=== PATIENT | female | born 1980 | race Caucasian/White ===

== ENCOUNTER 2024-09-11 05:54 | Emergency (ER) | payer MEDICAID, SELFPAY ==
[2024-09-11 05:58] VITALS: BP 133/83; PULSE 60; RESP 17; TEMP 36.6; O2SAT 98
[2024-09-11 06:01] VITALS: PULSE 78; RESP 16; O2SAT 98; BMI 39.5
--- NOTE | 2024-09-11 06:05 | EKG_ITS ---
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
[2024-09-11 06:10] VITALS: BP 163/68; PULSE 60; RESP 16; TEMP 37; O2SAT 98
--- NOTE | 2024-09-11 06:34 | XR_ITS ---
Examination: CT brain head without contrast. 2-D sagittal coronal reconstructions Date and time of exam:September 11, 2024, 0717 hours Comparison August 13, 2023 INDICATIONS: New onset seizure today CTDI: vol (mGy):46.8 DLP: (mGycm):919 Technique: Multiple CT axial sections of the brain have been obtained, 5 mm slice thickness. Contrast has not been administered. 2-D sagittal, coronal reconstructions have been obtained Low dose protocols were performed. One or more of the following dose reduction techniques were used; automated exposure control, adjustment of the mA and/or KV according to patient size, use of iterative reconstruction technique. Findings: Patient motion degrades scan image quality Ventricles are not enlarged No hemorrhage mass effect or midline shift Cranial vault grossly intact IMPRESSION: Patient motion degrades scan image quality. No gross hemorrhage or mass effect or midline shift Consider elective brain MRI follow-up, pre and postcontrast, seizure protocol
--- NOTE | 2024-09-11 06:40 | PD.EDSEIZ ---
ED Seizures RME/HPI General Chief Complaint: Seizure Stated Complaint: SEIZURE Time Seen by Provider: 09/11/24 06:31 Arrival date/time: 09/11/24 05:54 RME / HPI RME / HPI Narrative: 44-year-old female otherwise healthy who presents with approximately 1 year of increasing fainting spells . She states that she now is caring for her terminally ill father which is increasing stress including poor sleep. She states she feels these triggers of panic , then her arms and legs lock up , and she passes out. She does not endorse seizure-like activity. No oral trauma. No bowel or bladder loss. She denies recent head trauma, no recent illness. She denies fevers chills or sweats. She denies neck pain. She currently has a headache and is requesting an aspirin . EMS states that she had 2 panic attacks lasting 5 minutes. 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: No Related Data Previous Rx's ?Medication ?Instructions ?Recorded ondansetron 4 mg disintegrating 4 mg PO Q6H PRN nausea and 08/13/23 tablet vomiting #10 tabs metoclopramide HCl 10 mg tablet 10 mg PO Q6H PRN nausea and 08/14/23 (Reglan) vomiting #20 tabs pantoprazole 40 mg tablet,delayed 40 mg PO QDAY #30 tabs 08/14/23 release (Protonix) Allergies Allergy/AdvReac Type Severity Reaction Status Date / Time morphine Allergy Severe VOMITING Verified 09/11/24 06:00 AND HEADACHE Penicillins Allergy Severe RASH AND Verified 09/11/24 06:00 TACHYCARDIA Review of Systems Review of Systems Systems Reviewed: All systems reviewed, normal except as documented Past Medical History Past Medical History CARDIAC: Negative Cardiac Disorders GASTROINTESTINAL: Positive Gastrointestinal Disorders GENITOURINARY: Negative Renal Disease PSYCHO/SOCIAL: Positive Anxiety Surgical History SURGICAL: Positive Hysterectomy and Section Social History SMOKING STATUS: Current some day smoker SUBSTANCE USE: unknown ED Exam Narrative Physical exam: GENERAL APPEARANCE: AxOx4, generally well-appearing, no acute distress, gets very emotional, teary-eyed when talking about her father HEENT: NC, AT. MMM. EOMI, clear conjunctiva, oropharynx clear. NECK: Supple without lymphadenopathy. No stiffness or restricted ROM. HEART: Normal rate and regular rhythm, normal S1/S1, no m/r/g LUNGS: CTAB, moving air well. No crackles or wheezes are heard. ABDOMEN: Soft, nontender, nondistended with good bowel sounds heard. BACK: No midline C/T/L spine pain or deformity, No CVAT, no obvious deformity. EXTREMITIES: Without cyanosis, clubbing or edema. MUSCULOSKELETAL: FROM of all major joints, no chest tenderness NEUROLOGICAL: Grossly nonfocal. Alert and oriented, moving all 4 extremities. CN not formally tested but appear grossly intact. Observed to ambulate with normal gait. Skin: Warm and dry without any rash. Course Quality Measures none Orders Category Date Time Status Bedside Blood Glucose NOW Care 09/11/24 06:09 Completed EKG (ED ONLY) *Do not use* NOW Care 09/11/24 06:05 Completed IV [Insert IV] STAT Care 09/11/24 06:[address] head/brain wo con Stat Exams 09/11/24 06:34 Completed EKG (ED Only) Stat Exams 09/11/24 06:05 Ordered Alcohol, Urine Stat Lab 09/11/24 06:42 Completed CBC Stat Lab 09/11/24 06:42 Completed CMP [Comprehensive Metabolic Panel] Stat Lab 09/11/24 06:42 Completed Drug Screen,Urine Stat Lab 09/11/24 06:42 Completed Aspirin Med 09/11/24 07:03 Discontinued 325 mg PO X1 ONE Vital Signs Vital signs: Vital Signs Temperature 97.9 F 09/11/24 05:58 Pulse Rate 60 09/11/24 05:58 Respiratory Rate 17 09/11/24 05:58 Blood Pressure 133/83 H 09/11/24 05:58 Pulse Oximetry (%) 98 09/11/24 05:58 Oxygen Delivery Method Room Air 09/11/24 05:58 Pulse ox is 98% on room air which is adequate. Seizure MDM Narrative MDM Narrative:: Colette Junior am scribing for and in the presence of Dr. Hugo. Patient data External records reviewed:: [facility] previous records (I reviewed ED Visit on 08/14/2023 ) Clinical information provided by:: patient Social determinants that could affect healthcare access:: mental health Patient has the following chronic illnesses:: Anxiety How is presenting disease/condition affected by chronic disease/condition?: exacerbated by Evaluation data The following diagnostics were reviewed and interpreted by me:: lab results, radiology exam(s) (Head CT interpreted by me, negative for acute intracranial findings, no bony abnormalities. ) and EKG tracing(s) (EKG 09/11/2024 @ 06:13 AM. Atrial fibrillation with slow ventricular response, rate 59, no STEMI. ) Lab and/or radiology exams considered but not ordered:: None Interpretation Summary: Ordering Physician: Jah Hugo MD Date of Service: 09/11/24 Procedure(s): CT head/brain wo con Accession Number(s): [id number] cc: Jah Hugo MD; Shine Peraza MD; NO PRIMARY/FAMILY,PHYSICIAN~ Examination: CT brain head without contrast. 2-D sagittal coronal reconstructions Date and time of exam:September 11, 2024, 0717 hours Comparison August 13, 2023 INDICATIONS: New onset seizure today CTDI: vol (mGy):46.8 DLP: (mGycm):919 Technique: Multiple CT axial sections of the brain have been obtained, 5 mm slice thickness. Contrast has not been administered. 2-D sagittal, coronal reconstructions have been obtained Low dose protocols were performed. One or more of the following dose reduction techniques were used; automated exposure control, adjustment of the mA and/or KV according to patient size, use of iterative reconstruction technique. Findings: Patient motion degrades scan image quality Ventricles are not enlarged No hemorrhage mass effect or midline shift Cranial vault grossly intact IMPRESSION: Patient motion degrades scan image quality. No gross hemorrhage or mass effect or midline shift Consider elective brain MRI follow-up, pre and postcontrast, seizure protocol Dictated By: Shine Peraza MD Signed By: <Electronically signed by Shine Peraza MD in OV> 09/11/24 0747 Medications / Prescriptions Medications or Prescriptions considered but not ordered:: None Medication administrations:: Medication Administration History Discontinued Medications Aspirin (Aspirin 325 Mg Tablet) 325 mg PO X1 ONE Stop: 09/11/24 07:04 Last Admin: 09/11/24 07:33 Dose: 325 mg Documented By: TM See above Consultations Consultation(s) initiated? (list below): No Diagnosis Seizure Differential Diagnosis: focal seizure, generalized seizure and other (pseudo seizure, anxiety ) Most likely diagnosis given after review of the tests above:: Panic attack Syncope Admission Indicated Admission indicated?: not indicated Admission Request Was there a request for admission?: No Disposition Plan Disposition Plan: Discharge Discharge Attestation Discharge Attestation: The patient and all family members were given an opportunity to ask questions and understood the discharge instructions. Discharge instructions specifically effects, indications for sooner follow up or return to the emergency department, and the expected course of current diagnosis. Patient condition: Stable Discharge Plan Plan Patient Disposition: HOME (Self Care) Prescriptions/Referrals Prescriptions/Med Rec: No Action metoclopramide HCl [Reglan] 10 mg tablet 10 mg PO Q6H PRN (Reason: nausea and vomiting) Qty: 20 0RF pantoprazole [Protonix] 40 mg tablet,delayed release (DR/EC) 40 mg PO QDAY Qty: 30 0RF ondansetron 4 mg tablet,disintegrating 4 mg PO Q6H PRN (Reason: nausea and vomiting) Qty: 10 0RF Referrals: No Primary/Family,Physician [Primary Care Provider] - In 1 week Problem List Clinical Impression: Panic attack, Syncope Patient/Caregiver Discharge Instructions Education Materials: ED Anxiety Reaction, ED Fainting, Uncertain Cause Additional Instructions: Follow-up with your primary care doctor in 2 to 3 days for recheck. You consider possible referral with [facility] for therapist as well. Feel free return to the emergency department sooner symptoms worsen or if you notice any new, concerning issues Print Language: Turkish Stand Alone Forms: Ruth Award Info., Patient Portal Info Letter
[2024-09-11 06:59] LABS: Basophils % (Auto) 0 % (0-2.5); Eosinophils # (Auto) 0.1 Thou/mm3 (0.0-0.5); Eosinophils % (Auto) 1 % (0-10); Hematocrit 40.7 % (36.0-46.0); Hemoglobin 14.4 g/dL (12.0-16.0); Immature Granulocytes % (Auto) 0 % (0-0); Immature Granulocytes Auto 0.02 Thou/mm3 (0.00-0.00); Lymphocytes # (Auto) 1.6 Thou/mm3 (1.0-4.8); Lymphocytes % (Auto) 21 % (10-50); Mean Corpuscular HGB Conc 35.4 g/dl (31.0-37.0); Mean Corpuscular Hemoglobin 29.9 pg (25.0-35.0); Mean Corpuscular Volume 84 fL (80-100); Monocytes # (Auto) 0.3 Thou/mm3 (0.0-0.8); Monocytes % (Auto) 5 % (0-12); Neutrophils # (Auto) 5.5 Thou/mm3 (1.8-7.7); Neutrophils % (Auto) 73 % (37-80); Nucleated Red Blood Cell % 0 /100 WBC (0); Platelet Count 241 Thou/mm3 (140-440); RDW Standard Deviation 43.3 fL (36.4-46.3); Red Blood Count 4.82 Miln/mm3 (4.00-5.20); White Blood Count 7.5 Thou/mm3 (3.6-11.0)
[2024-09-11 07:18] LABS: Alanine Aminotransferase 8 U/L (10-49); Albumin, Serum 4.3 gm/dL (3.5-5.0); Alkaline Phosphatase 83 U/L (46-116); Anion Gap 9 (7-16); Aspartate Amino Transferase 16 U/L (0-34); BUN/Creatinine Ratio 16 Ratio (12-20); Bilirubin,Total 0.6 mg/dL (0.3-1.2); Blood Urea Nitrogen 11 mg/dL (9-23); Calcium 10.5 mg/dL (8.3-10.6); Calcium (Corrected) 10.5 mg/dL (8.5-10.1); Carbon Dioxide 26.5 mMol/L (20.0-31.0); Chloride 107 mMol/L (98-107); Creatinine (Component) 0.7 mg/dL (0.6-1.3); Estimated Creatinine Clearance 135.6 mL/min (>60); Globulin 2.1 gm/dL (2.3-3.5); Glucose 94 mg/dL (74-106); Osmolality,Calculated 282 (275-295); Potassium 3.4 mMol/L (3.4-5.1); Sodium 142 mMol/L (136-145); Total Protein 6.4 gm/dL (5.7-8.2); eGFR > 60 See Note
--- NOTE | 2024-09-11 07:20 | PC.NURSE ---
PT RESTING ON STRETCHER UPON ASSUMPTION OF CARE, DENIES ANY PAIN OR DISCOMFORT. PT TO CT AT THIS TIME. WILL CONT W/POC.
[2024-09-11 07:26] LABS: Alcohol, Urine Negative (Negative); Amphetamine/Methamp Scrn,U Negative (Negative); Barbiturate Screen,Urine Negative (Negative); Benzodiazepines Screen,Urine Negative (Negative); Benzoylecgonine Screen, Ur Negative (Negative); Fentanyl Screen,Urine Negative (Negative); Opiate Screen,Urine Positive (Negative); THC Screen,Urine Positive (Negative)
[2024-09-11] MEDS: Aspirin 325 MG TABLET PO (07:33)
== END 2024-09-11 08:06 | disposition home or self-care (01) ==
PROVIDERS: Emergency Provider Emergency Medicine
DX: F41.0 Panic disorder [episodic paroxysmal anxiety] (principal); R55 Syncope and collapse; R51.9 Headache, unspecified
CPT/HCPCS: 36415; 70450; 80053; 80307; 80320; 85025; 93005; 99284; A9270; G0480

== ENCOUNTER 2025-04-03 11:27 | Emergency (ER) | payer MEDICAID, SELFPAY ==
[2025-04-03 11:28] VITALS: BP 116/80; PULSE 43; RESP 20; TEMP 36.3; O2SAT 100
--- NOTE | 2025-04-03 11:32 | PD.EDADULT ---
ED General RME/HPI General Chief complaint: Dizziness Stated complaint: DIZZY,NAUSEA, VOMITING Time Seen by Provider: 04/03/25 11:30 Arrival date/time: 04/03/25 11:27 CC: Nausea vomiting diarrhea HPI ongoing for the past 3 days no other family members are ill patient also complaining of left upper quadrant abdominal pain. Denies fever chest pain shortness of breath or difficulty breathing been taking Pepto-Bismol without relief. Does not take any medicines. EMS reports stable vital signs and route. Related Data Previous Rx's ?Medication ?Instructions ?Recorded ondansetron 4 mg disintegrating 4 mg PO Q6H PRN nausea and 08/13/23 tablet vomiting #10 tabs metoclopramide HCl 10 mg tablet 10 mg PO Q6H PRN nausea and 08/14/23 (Reglan) vomiting #20 tabs pantoprazole 40 mg tablet,delayed 40 mg PO QDAY #30 tabs 08/14/23 release (Protonix) famotidine 20 mg tablet 20 mg PO QDAY #30 tabs 04/03/25 ondansetron 4 mg disintegrating 4 mg PO Q8H #14 tabs 04/03/25 tablet Allergies Allergy/AdvReac Type Severity Reaction Status Date / Time morphine Allergy Severe VOMITING Verified 04/03/25 11:39 AND HEADACHE Penicillins Allergy Severe RASH AND Verified 04/03/25 11:39 TACHYCARDIA Review of Systems Review of Systems Narrative Review of Systems: GEN: No fever, no chills, no weight loss EYES: No discharge, no visual changes, no pain HEENT: No ear pain, no congestion, no sore throat PULM: No shortness of breath, no cough, no congestion CV: No chest pain, no dyspnea on exertion, no palpitations GI: + nausea, + vomiting, + diarrhea, no pain, no constipation : No frequency, no urgency, no dysuria MUSC/SKEL: No joint pain, no back pain SKIN: No rash PSYCH: No hallucinations, no depression HEME/LYMPH: No easy bleeding or bruising tendencies NEURO: No weakness, no headache Course Course Course Narrative: At 1440 patient observed ambulating with an IV pole to the restroom and back without complication. Patient unaware that she is positive for fentanyl is not sure where she got it from however she states that she is not getting her THC from reputable sources, advised her not to use THC at all anymore. Patient also complaining of reflux we will start her on famotidine and give her some ondansetron for home. Patient is in agreement with this plan. Quality Measures none Orders Category Date Time Status Saline [Insert IV] NOW Care 04/03/25 11:31 Active B-Type Natriuretic Peptide Stat Lab 04/03/25 12:13 Completed CBC Stat Lab 04/03/25 12:13 Completed Comprehensive Metabolic Panel Stat Lab 04/03/25 12:13 Completed Drug Screen,Urine Stat Lab 04/03/25 13:30 Completed Lipase Stat Lab 04/03/25 12:13 Completed Magnesium Stat Lab 04/03/25 12:13 Completed Partial Thromboplastin Time Stat Lab 04/03/25 12:13 Completed Prothrombin Time with INR Stat Lab 04/03/25 12:13 Completed Urinalysis, C/S if Indicated Stat Lab 04/03/25 13:30 Completed Urine Culture Stat Lab 04/03/25 13:30 Received Ondansetron Inj [Zofran Inj] Med 04/03/25 11:31 Discontinued 4 mg IVP X1 ONE Sodium Chloride 0.9% 1000 ml [Ns] 1,000 ml Med 04/03/25 11:32 Discontinued IV 999 mls/hr Vital Signs Vital signs: Vital Signs Temperature 97.4 F 04/03/25 11:28 Pulse Rate 43 L 04/03/25 11:28 Respiratory Rate 20 04/03/25 11:28 Blood Pressure 116/80 04/03/25 11:28 Pulse Oximetry (%) 100 04/03/25 11:28 Oxygen Delivery Method Room Air 04/03/25 11:28 Discharge Plan Plan Patient Disposition: HOME (Self Care) Patient condition on transfer: Stable Prescriptions/Referrals Prescriptions/Med Rec: New ondansetron 4 mg tablet,disintegrating 4 mg PO Q8H Qty: 14 0RF famotidine 20 mg tablet 20 mg PO QDAY Qty: 30 1RF No Action metoclopramide HCl [Reglan] 10 mg tablet 10 mg PO Q6H PRN (Reason: nausea and vomiting) Qty: 20 0RF pantoprazole [Protonix] 40 mg tablet,delayed release (DR/EC) 40 mg PO QDAY Qty: 30 0RF ondansetron 4 mg tablet,disintegrating 4 mg PO Q6H PRN (Reason: nausea and vomiting) Qty: 10 0RF Referrals: No Primary/Family,Physician [Primary Care Provider] - In 1 week Minh Wade MD [Physician, Family Practice] - In 1 week Problem List Clinical Impression: Abdominal pain, Nausea & vomiting Patient/Caregiver Discharge Instructions Education Materials: Abdominal Pain, ED Vomiting (Adult) Additional Instructions: Take the medications as prescribed avoid all street drugs and THC. Follow-up with your primary care doctor. Print Language: Andorran Stand Alone Forms: Ruth Award Info., Patient Portal Info Letter PA/RESIDENTIAL REAL ESTATE APPRAISER Supervising Physician PA/RESIDENTIAL REAL ESTATE APPRAISER Supervising Physician: Ashvin Wells ENP [facility] Clinical Information Provided by: patient and EMS Medical Records reviewed [facility] and EMS Meds/Rx considered, not ordered None Labs/Rad/Tests considered, not ordered None Chronic Illness/Social Conditions Explain: Multiple visits to the emergency room for abdominal pain also for cannabis induced hyperemesis. Labs Labs: interpreted by co Lab(s) Interpretation(s): CBC shows no acute leukocytosis anemia thrombocytopenia Coags within acceptable limits CMP shows no significant electrolyte imbalances corrected calcium of 10.8. No transaminitis or T. bili elevation BNP of 106. Lipase of 36. Urine is negative for UTI. Urine tox screen positive for fentanyl and THC. Medication Administration(s) Medication Administration History Discontinued Medications Sodium Chloride (Ns) 1,000 mls @ 999 mls/hr IV .Q1H1M ONE Stop: 04/03/25 12:32 Last Infusion: 04/03/25 13:43 Dose: Infused Documented By: Admin: 04/03/25 12:13 Dose: 999 mls/hr Documented By: CHERRY Ondansetron HCl (Ondansetron Inj 2 Mg/Ml Inj 2 Ml) 4 mg IVP X1 ONE; Protocol Stop: 04/03/25 11:32 Last Admin: 04/03/25 12:12 Dose: 4 mg Documented By: CHERRY
[2025-04-03 11:35] VITALS: BMI 30.4
[2025-04-03] MEDS: ONDANSETRON INJ 2 MG/ML INJ 2 ML 4 MG IVP (12:12)
[2025-04-03] MEDS: SODIUM CHLORIDE 0.9% 1000 ML 1,000 ML 999 ML IV (12:13)
[2025-04-03 12:39] LABS: Basophils # (Auto) 0.0 Thou/mm3 (0.0-0.2); Basophils % (Auto) 0 % (0-2.5); Eosinophils # (Auto) 0.0 Thou/mm3 (0.0-0.5); Eosinophils % (Auto) 0 % (0-10); Hematocrit 44.1 % (36.0-46.0); Hemoglobin 15.2 g/dL (12.0-16.0); Immature Granulocytes Auto 0.06 Thou/mm3 (0.00-0.00); Lymphocytes # (Auto) 1.4 Thou/mm3 (1.0-4.8); Lymphocytes % (Auto) 14 % (10-50); Mean Corpuscular HGB Conc 34.5 g/dl (31.0-37.0); Mean Corpuscular Hemoglobin 28.8 pg (25.0-35.0); Mean Corpuscular Volume 84 fL (80-100); Monocytes # (Auto) 0.5 Thou/mm3 (0.0-0.8); Monocytes % (Auto) 5 % (0-12); Neutrophils # (Auto) 8.1 Thou/mm3 (1.8-7.7); Neutrophils % (Auto) 80 % (37-80); Nucleated Red Blood Cell # 0.00 Thou/mm3 (0.00-0.00); Nucleated Red Blood Cell % 0 /100 WBC (0); Platelet Count 259 Thou/mm3 (140-440); RDW Standard Deviation 41.0 fL (36.4-46.3); Red Blood Count 5.28 Miln/mm3 (4.00-5.20); White Blood Count 10.1 Thou/mm3 (3.6-11.0)
[2025-04-03 12:40] VITALS: BP 141/78; PULSE 56; RESP 16; O2SAT 98
[2025-04-03 12:56] LABS: INR 1.0 (0.9-1.3); Partial Thromboplastin Time 24.8 Seconds (22.0-36.0); Prothrombin Time 11.0 Seconds (9.0-12.2)
[2025-04-03 12:58] LABS: B-Type Natriuretic Peptide 106 pg/mL (0-100)
[2025-04-03 12:59] LABS: Alanine Aminotransferase 10 U/L (10-49); Albumin, Serum 4.1 gm/dL (3.5-5.0); Albumin/Globulin Ratio 1.4 (1.2-2.2); Alkaline Phosphatase 93 U/L (46-116); Anion Gap 10 (7-16); Aspartate Amino Transferase 16 U/L (0-34); BUN/Creatinine Ratio 11 Ratio (12-20); Bilirubin,Total 0.5 mg/dL (0.3-1.2); Blood Urea Nitrogen 9 mg/dL (9-23); Calcium 10.8 mg/dL (8.3-10.6); Calcium (Corrected) 10.8 mg/dL (8.5-10.1); Carbon Dioxide 24.3 mMol/L (20.0-31.0); Chloride 104 mMol/L (98-107); Creatinine (Component) 0.8 mg/dL (0.6-1.3); Estimated Creatinine Clearance 102.4 mL/min (>60); Globulin 3.0 gm/dL (2.3-3.5); Glucose 92 mg/dL (74-106); Lipase 36 U/L (12-53); Magnesium 2.0 mg/dL (1.6-2.6); Osmolality,Calculated 274 (275-295); Potassium 3.9 mMol/L (3.4-5.1); Sodium 138 mMol/L (136-145); Total Protein 7.1 gm/dL (5.7-8.2); eGFR > 60 See Note
[2025-04-03 13:55] LABS: Collection Type, Urine Clean Catch
[2025-04-03 14:08] LABS: Bilirubin,Urine Negative (Negative); Blood,Urine 1+ (Negative); Clarity,Urine Clear (Clear/Hazy); Color,Urine Lt-Yellow (Lt Yel-Yel); Glucose, Urine Negative (Negative); Ketones,Urine 2+ (Negative); Leukocyte Esterase,Urine Negative (Negative); Nitrite,Urine Positive (Negative); PH,Urine 6.0 (5.0-7.0); Protein,Urine Negative (Neg - Trace); RBC,Urine 2 /hpf (0-3); Specific Gravity,Urine 1.013 (1.001-1.035); Squamous Epithelial Cell,Urine 2 /hpf (0-5); Urobilinogen,Urine Negative mg/dL (0.0-1.0); WBC,Urine 1 /hpf (0-5)
[2025-04-03 14:10] LABS: Culture Indicated,Urine Yes
[2025-04-03 14:16] LABS: Amphetamine/Methamp Scrn,U Negative (Negative); Barbiturate Screen,Urine Negative (Negative); Benzodiazepines Screen,Urine Negative (Negative); Benzoylecgonine Screen, Ur Negative (Negative); Fentanyl Screen,Urine Positive (Negative); Opiate Screen,Urine Negative (Negative); THC Screen,Urine Positive (Negative)
== END 2025-04-03 15:11 | disposition home or self-care (01) ==
PROVIDERS: Registered Nurse General Practice; Emergency Provider Family Medicine
DX: R10.12 Left upper quadrant pain (principal); R11.2 Nausea with vomiting, unspecified; R19.7 Diarrhea, unspecified; R42 Dizziness and giddiness
CPT/HCPCS: 36415; 80053; 80307; 81001; 83690; 83735; 83880; 85025; 85610; 85730; 87077; 87086; 87186; 96365; 96375; 99283; J2405; J7030